=== PATIENT | male | born 1985 | race African-American/Black ===

== ENCOUNTER → 2016-04-16 | Outpatient (CLI) | payer SELFPAY | LOC: HEDF 21:55 | DX: T20.20XA Burn of second degree of head, face, and neck, unspecified site, initial encounter (principal); T23.202A Burn of second degree of left hand, unspecified site, initial encounter; T23.201A Burn of second degree of right hand, unspecified site, initial encounter; X03.0XXA Exposure to flames in controlled fire, not in building or structure, initial encounter | CPT/HCPCS: A0431; A0436 ==